=== PATIENT | female | born 1955 | race Caucasian/White ===

== ENCOUNTER 2022-05-12 12:49 | Outpatient (CLI) | payer MEDICARE, BC, SELFPAY ==
[2022-05-12 14:17] LABS: Albumin* 4.7 g/dL (3.3-5.0); Chloride* 94 mmol/L (96-114); Potassium* 4.5 mmol/L (3.6-5.1); Sodium* 137 mmol/L (135-149)
[2022-05-12 14:19] LABS: Carbon Dioxide* 38 mmol/L (20-32); Cholesterol* 218 mg/dL (90-199); Creatinine* 0.9 mg/dL (0.5-1.5); Estimated Glomerular Filt Rate 71 ml/min; Total Protein* 7.1 g/dL (6.0-8.3)
[2022-05-12 14:20] LABS: Alanine Aminotransferase* 25 U/L (4-35); Alkaline Phosphatase* 73 U/L (40-150); Aspartate Amino Transferase* 34 U/L (12-35); Bilirubin Total* 0.5 mg/dL (0.1-1.5); Blood Urea Nitrogen* 23 mg/dL (7-30); Calcium* 10.3 mg/dL (8.4-10.6); Glucose* 100 mg/dL (60-115); HDL Cholesterol* 68 mg/dL (>=50); LDL Cholesterol Calculated 134 mg/dL (<100); Triglycerides* 80 mg/dL (40-149)
== END 2022-05-12 12:50 | disposition home or self-care (01) ==
PROVIDERS: PCP Physician Assistant Medical; Visit Provider Physician Assistant Medical
DX: I10 Essential (primary) hypertension (principal); E78.5 Hyperlipidemia, unspecified; F41.9 Anxiety disorder, unspecified
CPT/HCPCS: 80053; 80061; 84443

== ENCOUNTER 2022-08-11 12:56 | Outpatient (CLI) | payer MEDICARE, BC, SELFPAY ==
--- NOTE | 2022-08-11 13:00 | CRLHL7_ITS ---
For Patients: As a result of the Century Cures Act, medical imaging exams and procedure reports are released immediately into your electronic medical record. You may view this report before your referring provider. If you have questions, please contact your health care provider. DXA BONE MINERAL DENSITY STUDY Reason for exam: Asymptomatic menopausal state. Current height (in): 67. Weight (lb): 140. Menopause age: 58. Ethnicity: White. 1. Have you had a previous hip or vertebral fracture? Yes. 2. Have you had any fractures during your adult life which did not result from significant trauma (e.g., auto accident)? Yes. 3. Did either of your parents have a hip fracture? Yes. 4. Do you smoke? No. 5. Have you ever taken Glucocorticoids? No. 6. Do you have rheumatoid arthritis? No. 7. Do you have secondary osteoporosis? No. 8. Do you drink 3 or more alcoholic drinks per day? No. 9. Are you being treated for osteoporosis? No. 10. Have you ever taken any of the following medications: Actonel, Evista, Fosamax, Miacalcin, Reclast, Boniva, Forteo, HRT (i.e. estrogen/hormone therapy), Protelos, Prolia, Vitamin D, Calcium, other ??? please specify. ANSWER: Yes, vitamin D, calcium. 11. Do you have any of the following medical conditions: Anorexia or bulimia, asthma or emphysema, end stage renal disease, hyperparathyroidism, any seizure disorders, cancer, inflammatory bowel diseases, hysterectomy, other ??? please specify. ANSWER: No. 12. What was your maximum height (inches)? 67. 13. Do you perform weight bearing exercise regularly? Yes. 14. Do you regularly consume dairy products? Yes. 15. Do you drink caffeinated beverages? Yes. 16. At what age did your period start? 14. 17. Are you premenopausal? No. 18. How many full term pregnancies have you had? 2. 19. Have you ever missed your period for more than 6 months in a row (not including or menopause)? No. TECHNIQUE: Bone mineral density study was performed using the [employer]. FINDINGS: The results of the study expressed as bone mineral density (BMD) are as follows: Lumbar spine L1 to L3: BMD: 0.831 g/cm2. T-score: -1.7. Z-score: 0.1. Neck Left: BMD: 0.537 g/cm2. T-score: -2.8. Z-score: -1.3. Total Left: BMD: 0.629 g/cm2. T-score: -2.6. Z-score: -1.3. Radius Right 33%: BMD: 0.576 g/cm2. T-score: -2.0. Z-score: -0.3 IMPRESSION: Osteoporosis. *Comparison exams done prior to 10/2019 were performed on different unit, [employer]. Valerio Bautista M.D. Diagnostic Radiologist [email or web address] JEY/Dictated by: Valerio Bautista MD @ 08/13/2022 9:42:00 AM (Electronically Signed)
== END 2022-08-11 12:57 | disposition home or self-care (01) ==
LOC: RAD 12:59
PROVIDERS: PCP Physician Assistant Medical; Visit Provider Physician Assistant Medical
DX: Z78.0 Asymptomatic menopausal state (principal); M81.0 Age-related osteoporosis without current pathological fracture
CPT/HCPCS: 77080

== ENCOUNTER 2023-07-06 09:30 | Outpatient (CLI) | payer MEDICARE, BC, SELFPAY | END 2023-07-06 09:31 | disposition home or self-care (01) | LOC: NFLDREF 07-08 06:36 | PROVIDERS: PCP Physician Assistant Medical; Referring Provider Physician Assistant Medical; Visit Provider Physician Assistant Medical | DX: E78.5 Hyperlipidemia, unspecified (principal); I10 Essential (primary) hypertension; M81.0 Age-related osteoporosis without current pathological fracture; K42.9 Umbilical hernia without obstruction or gangrene; F41.9 Anxiety disorder, unspecified | CPT/HCPCS: 80053; 80061; 82306; 84443 ==

== ENCOUNTER 2023-09-23 08:50 | Outpatient (CLI) | payer MEDICARE, BC, SELFPAY | END 2023-09-23 08:51 | disposition home or self-care (01) | LOC: NFLDREF 10-13 14:07 | PROVIDERS: PCP Physician Assistant Medical; Referring Provider Physician Assistant Medical; Visit Provider Physician Assistant Medical | DX: E78.5 Hyperlipidemia, unspecified (principal) | CPT/HCPCS: 80061; 80076 ==

== ENCOUNTER 2024-10-10 08:23 | Outpatient (CLI) | payer MEDICARE, SELFPAY | END 2024-10-10 08:24 | disposition home or self-care (01) | PROVIDERS: PCP Physician Assistant Medical; Visit Provider Physician Assistant Medical | DX: Z00.01 Encounter for general adult medical examination with abnormal findings (principal); M81.0 Age-related osteoporosis without current pathological fracture; I10 Essential (primary) hypertension; E78.5 Hyperlipidemia, unspecified; F41.9 Anxiety disorder, unspecified | CPT/HCPCS: 80053; 80061; 82306; 84443 ==

== ENCOUNTER 2024-11-07 15:24 | Outpatient (CLI) | payer MEDICARE, SELFPAY ==
--- NOTE | 2024-11-07 15:30 | CRLHL7_ITS ---
For Patients: As a result of the Century Cures Act, medical imaging exams and procedure reports are released immediately into your electronic medical record. You may view this report before your referring provider. If you have questions, please contact your health care provider. DXA BONE MINERAL DENSITY STUDY Current height (in): 67. Weight (lb): 147. Menopause age: 58. Ethnicity: White. 1. Have you had a previous hip or vertebral fracture? Yes. 2. Have you had any fractures during your adult life which did not result from significant trauma (e.g., auto accident)? Yes. 3. Did either of your parents have a hip fracture? Yes. 4. Do you smoke? No. 5. Have you ever taken Glucocorticoids? No. 6. Do you have rheumatoid arthritis? No. 7. Do you have secondary osteoporosis? No. 8. Do you drink 3 or more alcoholic drinks per day? No. 9. Are you being treated for osteoporosis? Yes 10. Have you ever taken any of the following medications: Actonel, Evista, Fosamax, Miacalcin, Reclast, Boniva, Forteo, HRT (i.e. estrogen/hormone therapy), Protelos, Prolia, Vitamin D, Calcium, other ??? please specify. ANSWER: Yes, Vitamin D, Fosamax and Calcium. 11. Do you have any of the following medical conditions: Anorexia or bulimia, asthma or emphysema, end stage renal disease, hyperparathyroidism, any seizure disorders, cancer, inflammatory bowel diseases, hysterectomy, other ??? please specify. ANSWER: No. 12. What was your maximum height (inches)? 67. 13. Do you perform weight bearing exercise regularly? Yes. 14. Do you regularly consume dairy products? Yes. 15. Do you drink caffeinated beverages? Yes. 16. At what age did your period start? 14. 17. Are you premenopausal? No. 18. How many full term pregnancies have you had? 2. 19. Have you ever missed your period for more than 6 months in a row (not including or menopause)? No. TECHNIQUE: Bone mineral density study was performed using the [employer] FINDINGS: The results of the study expressed as bone mineral density (BMD) are as follows: Lumbar spine L1 to L3: BMD: 0.861 g/cm2. T-score: -1.4. Z-score: 0.5. Neck Left: BMD: 0.548 g/cm2. T-score: -2.7. Z-score: -1.0. Total Left: BMD: 0.709 g/cm2. T-score: -1.9. Z-score: -0.5. Radius Right 33%: BMD: 0.576 g/cm2. T-score: -2.0. Z-score: -0.1. IMPRESSION: Osteoporosis. Valerio Bautista M.D. Diagnostic Radiologist [email or web address] JF/charles DW/Dictated by: Valerio Bautista MD @ 11/09/2024 10:48:00 AM (Electronically Signed)
== END 2024-11-07 15:25 | disposition home or self-care (01) ==
LOC: RAD 15:26
PROVIDERS: PCP Physician Assistant Medical; Visit Provider Physician Assistant Medical
DX: Z13.820 Encounter for screening for osteoporosis (principal); M81.0 Age-related osteoporosis without current pathological fracture
CPT/HCPCS: 77080

== ENCOUNTER 2024-11-19 08:31 | Outpatient (CLI) | payer MEDICARE, SELFPAY | END 2024-11-19 08:32 | disposition home or self-care (01) | LOC: NFLDREF 14:44 | PROVIDERS: PCP Physician Assistant Medical; Referring Provider Physician Assistant Medical; Visit Provider Physician Assistant Medical | DX: E87.5 Hyperkalemia (principal); R74.01 Elevation of levels of liver transaminase levels | CPT/HCPCS: 80053 ==